=== PATIENT | female | born 1975 | race Caucasian/White ===

== ENCOUNTER 2020-01-30 14:20 | Outpatient (REF) | payer OTHER, SELFPAY ==
--- NOTE | 2020-01-30 14:28 | US_ITS ---
EXAMINATION: US VENOUS ULTRASOUND WITH DOPPLER LOWER EXTREMITY, RIGHT CLINICAL INFORMATION: Swelling. Assess for occult DVT COMPARISON: None TECHNIQUE: Ultrasound of the deep veins is performed from the hip to the calf with compression sonography and color and pulse Doppler assessment. Spectral analysis with color-flow imaging is performed. FINDINGS: There is normal venous compression and respiratory variation and augmented flow. The visualized common femoral vein, superficial femoral vein, profunda femoral vein, popliteal vein, and visualized mid calf peroneal and posterior tibial venous segments show no evidence of deep venous thrombosis. There is no significant popliteal fossa cyst. IMPRESSION: No DVT demonstrated in the right lower extremity.
== END 2020-01-30 14:21 | disposition home or self-care (01) ==
LOC: HO.HMGCX 14:20
PROVIDERS: PCP Internal Medicine; Visit Provider Hospitalist
DX: R60.0 Localized edema (principal)
CPT/HCPCS: 93971

== ENCOUNTER 2020-03-28 11:20 | Outpatient (REF) | payer BC, OTHER, SELFPAY ==
[2020-03-28 14:03] LABS: Glucose Urine UA NEG (NEG); Leukocyte Esterase Urine NEG (NEG); Nitrite Urine NEG (NEG); PH 5.5 (5.0-8.0); Specific Gravity - Urine <= 1.005 (1.005-1.025); Urine Blood NEG (NEG); Urine Ketones NEG (NEG); Urine Protein NEG (NEG-TRACE)
[2020-03-28 14:05] LABS: Appearance Urine CLEAR; Color Urine STRAW
[2020-03-28 14:59] LABS: Creatinine Urine 19.18 mg/dL
== END 2020-03-28 11:21 | disposition home or self-care (01) ==
LOC: HO.HMGCLDS 11:20
PROVIDERS: Visit Provider Hospitalist
DX: R35.8 Other polyuria (principal)
CPT/HCPCS: 81003